=== PATIENT | female | born 1990 | race Caucasian/White ===

== ENCOUNTER 2019-12-15 14:20 | Outpatient (CLI) | payer OTHER ==
--- NOTE | 2019-12-15 17:15 | Ultrasound Report ---
PROCEDURE: OB Detailed Eval INDICATIONS: OUTSIDE/PRIOR DATING DATA: Last menstrual period (LMP): 07/03/2019. LMP-based estimated date of delivery (BARBARA): 04/08/2020. First dating scan (date and location): 11/06/2019. [facility] Estimated date of delivery (BARBARA) from first dating scan: 04/08/2020. TECHNIQUE: Real-time scanning was performed of the fetus, with image documentation and biometric measurements. COMPARISON: Initial dating documents from [facility] FINDINGS: General: A single living intrauterine gestation is present. Presentation: Breech Placenta: Placental position is anterior, without previa. Amniotic fluid index: 11.3 cm, within normal limits for gestational age. heart rate: 155 beats per minute. Maternal cervical canal: 6.0 cm long; normal length is 2.5 cm or more. biometrics: Biparietal diameter: 5.5 cm 22 weeks 5 days Head circumference: 20.5 cm 20 weeks 4 days Abdominal circumference: 7.9 cm 22 weeks 5 days Femur length: 4.0 cm 23 weeks 0 days Estimated gestational age from initial scan: 23 weeks 4 days Composite gestational age from present scan: 23 weeks 5 days Estimated weight and percentile: 5 36 g 13th percentile Measurement variability in biometric dating: +/- 10 days from 12-20 weeks gestation, +/- 2 weeks from 20-30 weeks gestation, +/- 3 weeks at 30 weeks gestation or later. Anatomic survey: Neuro: Ventricles are normal at less than 10 mm. Cisterna magna is normal at 3-11 mm. Cerebellum i s normal in size and morphology. Nuchal skin fold: Not well seen. Face: Nose and lips, facial profile are normal. Spine: No evidence for spina bifida. Heart: 4-chambered heart is present, with normal ventricular outflow tracts. Diaphragm: Diaphragm is intact. Stomach: Left-sided stomach is present. Kidneys: No hydronephrosis. Normal is less than 5 mm in 2nd trimester, less than 7 mm in 3rd trimester. Cord: 3 vessel cord has orthotopic insertion. Bladder: Normal in size. Extremities: All 4 extremities are visualized. IMPRESSION: 1. Single live intrauterine with ultrasound gestational age today 20 weeks 5 days compared to 23 weeks 4 days from initial dating. Ultrasound BABRARA is unchanged at 09/01. 2. Nuchal region is not well visualized. Follow-up ultrasound is recommended. Reviewed by: Gudelia Blum MD on 12/15/2019 5:13 PM PDT Approved by: Gudelia Blum MD on 12/15/2019 5:13 PM PDT Station ID: [id number]
== END 2019-12-15 14:21 | disposition home or self-care (01) ==
LOC: DI 14:20
PROVIDERS: ATTEND Obstetrics & Gynecology
DX: Z36.89 Encounter for other specified antenatal screening (principal)
CPT/HCPCS: 76811

== ENCOUNTER 2019-12-28 21:20 | Outpatient (CLI) | payer OTHER ==
--- NOTE | 2019-12-29 10:44 | Ultrasound Report ---
PROCEDURE: OB F/U or Repeat INDICATIONS: SUPERVISION OF NORMAL OUTSIDE/PRIOR DATING DATA: Last menstrual period (LMP): 07/03/2019. LMP-based estimated date of delivery (BARBARA): 04/08/2020. First dating scan (date and location): 11/06/2019, [facility] Estimated date of delivery (BARBARA) from first dating scan: 04/08/2020. TECHNIQUE: Real-time scanning was performed of the fetus, with image documentation and biometric measurements. Endovaginal scanning: Not performed COMPARISON: 12/15/2019 FINDINGS: General: A single living intrauterine gestation is present. Presentation: Vertex Placenta: Placental position is anterior, without previa. Amniotic fluid index: 13.1 cm, normal for gestational age. heart rate: 149 beats per minute. Nuchal skin thickness is normal. IMPRESSION: 1. Single live intrauterine with a normal nuchal region. Reviewed by: Jennifer Farley MD on 12/29/2019 10:43 AM PDT Approved by: Jennifer Farley MD on 12/29/2019 10:43 AM PDT Station ID: [id number]
== END 2019-12-28 21:21 | disposition home or self-care (01) ==
LOC: DI 21:20
PROVIDERS: ATTEND Obstetrics & Gynecology
DX: Z34.90 Encounter for supervision of normal pregnancy, unspecified, unspecified trimester (principal)
CPT/HCPCS: 76816

== ENCOUNTER 2020-01-18 17:30 | Outpatient (CLI) | payer OTHER ==
[2020-01-18 18:54] LABS: HGB - HEMOGLOBIN 11.9 g/dL (12.0-16.0); MEAN CORPUSCULAR HEMOGLOBIN 28.3 pg (27.0-31.0); MEAN CORPUSCULAR HGB CONC 32.7 g/dL (32.0-36.0); MEAN CORPUSCULAR VOLUME 86.7 fL (81.0-99.0); MEAN PLATELET VOLUME 9.8 fL (7.9-10.8); RED BLOOD COUNT 4.2 10^6/uL (4.20-5.40); RED CELL DISTRIBUTION WIDTH 13.5 % (12.0-15.0); WHITE BLOOD COUNT 14.9 x10^3/uL (4.8-10.8)
== END 2020-01-18 17:31 | disposition home or self-care (01) ==
LOC: LAB 17:30
PROVIDERS: ATTEND Obstetrics & Gynecology
DX: Z36.89 Encounter for other specified antenatal screening (principal)
CPT/HCPCS: 36415; 82950; 85027; 86850

== ENCOUNTER 2020-01-25 08:00 | Outpatient (CLI) | payer OTHER | END 2020-01-25 23:59 | disposition home or self-care (01) | LOC: LAB 08:00 | PROVIDERS: ATTEND Obstetrics & Gynecology | DX: O99.810 Abnormal glucose complicating pregnancy (principal) | CPT/HCPCS: 36415; 82951; 82952 ==

== ENCOUNTER 2020-03-07 08:00 | Outpatient (CLI) | payer OTHER | END 2020-03-07 23:59 | disposition home or self-care (01) | LOC: LAB.R 08:00 | PROVIDERS: ATTEND Obstetrics & Gynecology | DX: Z36.85 Encounter for antenatal screening for Streptococcus B (principal) | CPT/HCPCS: 87797 ==

== ENCOUNTER 2020-04-12 12:10 | Inpatient (IN) | payer OTHER ==
[2020-04-12] MEDS ORDERED: SODIUM CHLORIDE FLUSH 0.9% 10 ML SYRINGE IVP PRN ×2 (14:05→14:14)
[2020-04-12] MEDS ORDERED: MORPHINE 10 MG/ML VIAL IM PRN (14:05)
[2020-04-12] MEDS ORDERED: PROMETHAZINE 25 MG/1 ML VIAL IM ONE (14:05)
[2020-04-12] MEDS ORDERED: LIDOCAINE/PRILOCAINE 2.5% CREAM 5 GM TUBE TOP ONE (14:12)
[2020-04-12] MEDS ORDERED: TRANEXAMIC ACID 1,000 MG in SODIUM CHLORIDE 0.9% 100ML 100 ML IV PRN (14:14)
[2020-04-12] MEDS ORDERED: OXYTOCIN 10 UNIT/ML VIAL IM PRN (14:14)
[2020-04-12] MEDS ORDERED: METOCLOPRAMIDE 10 MG/2 ML VIAL IVP PRN (14:14)
[2020-04-12] MEDS ORDERED: CARBOPROST TROMETHAMINE 250 MCG/ML AMP IM PRN ×2 (14:14)
[2020-04-12] MEDS ORDERED: LIDOCAINE-MPF 1% 30 ML VIAL ID PRN (14:14)
[2020-04-12] MEDS ORDERED: ONDANSETRON ODT 4 MG TABLET TL PRN (14:14)
[2020-04-12] MEDS ORDERED: METOCLOPRAMIDE 10 MG TABLET PO PRN (14:14)
[2020-04-12] MEDS ORDERED: ACETAMINOPHEN 325 MG TABLET PO PRN (14:14)
[2020-04-12] MEDS ORDERED: miSOPROStoL 200 MCG TABLET BC PRN (14:14)
[2020-04-12] MEDS ORDERED: miSOPROStoL 200 MCG TABLET PR PRN (14:14)
[2020-04-12] MEDS ORDERED: METHYLERGONOVINE 0.2 MG/ML VIAL IM PRN (14:14)
[2020-04-12] MEDS ORDERED: OXYTOCIN/SODIUM CHLORIDE 500 ML IV PRN ×2 (14:14)
[2020-04-12] MEDS ORDERED: miSOPROStoL 200 MCG TABLET BC ONE (14:14)
[2020-04-12] MEDS ORDERED: ONDANSETRON 4 MG/2 ML VIAL IVP PRN (14:14)
[2020-04-12] MEDS ORDERED: OXYTOCIN/SODIUM CHLORIDE 500 ML IV SCH (15:00)
[2020-04-12 16:35] LABS: BASOPHILS # (AUTO) 0.1 10^3/uL (0.0-0.1); BASOPHILS % (AUTO) 0.3 %; HGB - HEMOGLOBIN 11.3 g/dL (12.0-16.0); LYMPHOCYTES % (AUTO) 5.9 %; MEAN CORPUSCULAR HEMOGLOBIN 26.3 pg (27.0-31.0); MEAN CORPUSCULAR HGB CONC 31.2 g/dL (32.0-36.0); MEAN CORPUSCULAR VOLUME 84.4 fL (81.0-99.0); MEAN PLATELET VOLUME 11.1 fL (7.9-10.8); MONOCYTES # (AUTO) 0.5 10^3/uL (0.0-1.0); NEUTROPHILS # (AUTO) 15.4 10^3/uL (1.5-6.6); NEUTROPHILS % (AUTO) 88.6 %; PLT - PLATELET COUNT 220 10^3/uL (130-450); RED BLOOD COUNT 4.29 10^6/uL (4.20-5.40); RED CELL DISTRIBUTION WIDTH 14.9 % (12.0-15.0); WHITE BLOOD COUNT 17.4 x10^3/uL (4.8-10.8)
[2020-04-12] MEDS ORDERED: SODIUM CHLORIDE FLUSH 0.9% 10 ML SYRINGE IVP SCH (17:00)
[2020-04-12] MEDS ORDERED: miSOPROStoL 100 MCG TABLET BC SCH (18:00)
[2020-04-12] MEDS ORDERED: fentaNYL 100 MCG/2 ML VIAL IVP PRN (20:14)
[2020-04-12] MEDS: LACTATED RINGERS 1,000 ML IV SCH (20:14)
[2020-04-12] MEDS: miSOPROStoL 100 MCG TABLET BC SCH (22:41)
--- NOTE | 2020-04-13 00:16 | HISTORY & PHYSICAL EXAMINATION ---
Admit History - Visit Reason Visit Reason: Other (IOL) - : 1 Parity: 0 Care: positive: [facility] Smoking Status: Never smoker - Mother's Labs Mother's Blood Type: positive: A Mother's RH: positive: Negative GBS: positive: Group B Step Negative Rubella Status: positive: Immune - Other Maternal History Other Maternal History: Patient is a 29 yo at 40+4 wga here for IOL. Patient was seen in clinic today and counseled regarding need for IOL for post dates. She signed consent forms in clinic one week ago. She was checked in clinic and was 2/70/high/posterior/med. She is hesitant to undergo induction but agreed to come in for outpatient Benoit balloon placement. Benoit balloon was inserted with a speculum with 60 cc in the uterine balloon and 40 cc int he vaginal balloon. Placement of the balloon was poorly tolerated and she desired to remain inpatient for pain management. Benoit balloon fell out and patient opted tocontinue cervical ripening with misoprostol with plan to continue the induction once cervical ripening is complete. Patient is Rh neg and received Rhogam. Failed 1H OGTT but passed the 3H GTT. PNC HX as below: Reviewed R/B/A and process for induction of labor at 39 week visit Induction is no longer elective as of 05/15/2019 as she is postdates DATING: LMP 11/28/2018 gives BARBARA of 04/08/2020. US 15w3d confirms LMP dating. Please see ultrasound scanned sheets from [facility]. A neg/Rub imm Declined genetic testing and carrier screening. FAS EFW 13%ile. 3VC, anterior placenta Rhogam given 01/19/2020 Tdap completed Flu- declined Glucola 181, normal 3H GTT HSV: Denies. GBS neg MOD: Anticipate . Will need Pap in period Breast Rx given Meds/Allgy - Allergies Allergies/Adverse Reactions: Allergies Allergy/AdvReac Type Severity Reaction Status Date / Time No Known Drug Allergies Allergy Verified 04/12/20 20:21 Review of Systems - Other Findings Other Findings: As per HPI, otherwise remaining systems are negative. Physical - Abdominal Exam Vital Signs: Temp Pulse Resp BP Pulse Ox 97.5 F L 96 17 117/73 100 04/12/20 17:00 04/12/20 17:00 04/12/20 17:00 04/12/20 17:00 04/12/20 17:00 Contraction Frequency (min/apart): Irregular Contraction Intensity: positive: Mild to moderate Uterine Resting Tone: positive: Soft - Monitoring Heart Rate Baseline: 140 mod brandon 15x15 accels no decels Strip Review: positive: Category I - Presentation Presentation: positive: Vertex - Vaginal Exam Membranes: positive: Membranes intact Dilation (in cm): 2 Effacement (%): 70 Station: positive: -3 Cervical Position: positive: Posterior - Speculum Exam Speculum Exam Performed: positive: Yes - Other Notes Labor Progress Note/Additional Text: GEN: NAD HEAD: NCAT EYES: No scleral icterus or conjunctival injection NECK: No cervical LAD or TM CV: RRR RESP: CTAB, normal effort ABD: S&NT/ND PSYCH: appropriate affect NEURO: alert and oriented, normal gait and coordination EXT: WWP confirmed vertex by bedside us Benoit balloon placed at admit 60 cc in uterine balloon and 40 cc in vaginal balloon Plan for Labor - Plan For Labor Plan for Labor: 29 yo at 40+4 wga here for IOL IOL: Unfavorable cervix -Benoit balloon placed with plan for outpatient management Poorly tolerated and patient opted to stay in house -Benoit baloon fell out and patient was amenable to misoprstol for additional ripening -Will start pitocin when favorable -AROM as indicated FWB: Vertex, Cat I, well grown, GBS neg -Cont EFM when on miso/pitocin PAIN: Patient had been planning unmedicated but is re-evaluating -Nitrous oxide as desired -Epidural as desired Inpatient care
--- NOTE | 2020-04-13 01:27 | PROVIDER PROGRESS NOTE ---
Subjective - Prog Note Date Prog Note Date: 04/13/20 Prog Note Time: 01:25 - Subjective Subjective: Benoit balloon fell out Patient was given miso 25 mcg x1 and then 50 mcg BC x1 Sleeping comfortably EFM 140 mod brandon 15x15 accels no decels TOCO: Q2-4 min, mild Cont with miso for cervical ripening Start pitocin when favorable or ruptured Objective - Lab Results Fish Bones: 04/12/20 16:17 Other Labs: Lab Results x24hrs 04/12/20 04/12/20 Range/Units 16:17 16:17 WBC 17.4 H (4.8-10.8) x10^3/uL RBC 4.29 (4.20-5.40) 10^6/uL Hgb 11.3 L (12.0-16.0) g/dL Hct 36.2 L (37.0-47.0) % MCV 84.4 (81.0-99.0) fL MCH 26.3 L (27.0-31.0) pg MCHC 31.2 L (32.0-36.0) g/dL RDW 14.9 (12.0-15.0) % Plt Count 220 (130-450) 10^3/uL MPV 11.1 H (7.9-10.8) fL Neut # (Auto) 15.4 H (1.5-6.6) 10^3/uL Lymph # (Auto) 1.0 L (1.5-3.5) 10^3/uL [place] # (Auto) 0.5 (0.0-1.0) 10^3/uL Eos # (Auto) 0.0 (0.0-0.7) 10^3/uL Baso # (Auto) 0.1 (0.0-0.1) 10^3/uL Absolute Nucleated RBC 0.00 x10^3/uL Nucleated RBC % 0.0 /100WBC Blood Type A NEGATIVE Antibody Screen NEGATIVE
[2020-04-13] MEDS: miSOPROStoL 100 MCG TABLET BC SCH (03:31)
[2020-04-13] MEDS: LACTATED RINGERS 1,000 ML IV SCH ×3 (05:32→23:08)
--- NOTE | 2020-04-13 15:07 | PROVIDER PROGRESS NOTE ---
Subjective - Prog Note Date Prog Note Date: 04/13/20 Prog Note Time: 13:15 - Subjective Subjective: Late entry Patient is up and ambulating. Mild to moderate discomfort. Pitocin at 6 mu/min Patient wants to avoid epidural if possible. Membranes intact. Objective - Vital Signs/Intake & Output Reviewed Vital Signs: Yes Intake & Output: Intake & Output 04/10/20 04/11/20 04/12/20 04/13/20 23:59 23:59 23:59 23:59 Intake Total 1866.667 Output Total 1200 Balance 666.667 - Objective General Appearance: positive: Mild distress Respiratory: positive: No respiratory distress Cardiovascular: positive: Other (RR) Abdomen: positive: Non-tender Skin: positive: Color nml Extremities: positive: Non-tender Neurologic/Psychiatric: positive: Oriented x3 Comments/Other: LJE 5-6//-2 - Lab Results Fish Bones: 04/12/20 16:17 Other Labs: Lab Results x24hrs 04/12/20 04/12/20 04/12/20 Range/Units 16:17 16:17 15:45 WBC 17.4 H (4.8-10.8) x10^3/uL RBC 4.29 (4.20-5.40) 10^6/uL Hgb 11.3 L (12.0-16.0) g/dL Hct 36.2 L (37.0-47.0) % MCV 84.4 (81.0-99.0) fL MCH 26.3 L (27.0-31.0) pg MCHC 31.2 L (32.0-36.0) g/dL RDW 14.9 (12.0-15.0) % Plt Count 220 (130-450) 10^3/uL MPV 11.1 H (7.9-10.8) fL Neut # (Auto) 15.4 H (1.5-6.6) 10^3/uL Lymph # (Auto) 1.0 L (1.5-3.5) 10^3/uL [place] # (Auto) 0.5 (0.0-1.0) 10^3/uL Eos # (Auto) 0.0 (0.0-0.7) 10^3/uL Baso # (Auto) 0.1 (0.0-0.1) 10^3/uL Absolute Nucleated RBC 0.00 x10^3/uL Nucleated RBC % 0.0 /100WBC Coronavirus (PCR) NEGATIVE Blood Type A NEGATIVE Antibody Screen NEGATIVE Assessment/Plan - Problem List (1) Encounter for induction of labor Impression: Continue with pitocin for induction of labor Progressing well along labor course Cat I tracing CTX Q3-4 min and mild Anticipate
--- NOTE | 2020-04-13 20:01 | PROVIDER PROGRESS NOTE ---
Subjective - Prog Note Date Prog Note Date: 04/13/20 Prog Note Time: 19:15 - Subjective Subjective: Patient struggling with emotions and discomfort. Pitocin 5 mU/min. Unable to tolerate cervical exam. Tearful EFM 135 moderate brandon 15x15 accels no decels TOCO: Q2-3 min Cat I tracing Had a discussion regarding the need to gain some control over her response to discomfort both to advance labor and to keep the delivery a safe process Patient is discussing means of managing discomforts with her mother We had a lengthy discussion regarding safety issues in labor with regard to appropriate responses to discomfort, emotional and physical Objective - Vital Signs/Intake & Output Intake & Output: Intake & Output 04/10/20 04/11/20 04/12/20 04/13/20 23:59 23:59 23:59 23:59 Intake Total 1866.667 Output Total 1200 Balance 666.667 - Lab Results Fish Bones: 04/12/20 16:17 Other Labs: Lab Results x24hrs 04/12/20 Range/Units 15:45 Coronavirus (PCR) NEGATIVE
[2020-04-13] MEDS ORDERED: ROPIVACAINE 0.2% 200 MG/100 ML BAG EP ONE (20:32)
[2020-04-13] MEDS ORDERED: ePHEDrine 50 MG/ML VIAL IVP ONE (21:07)
[2020-04-13] MEDS ORDERED: diphenhydrAMINE INJ 50 MG/ML VIAL IVP PRN (21:39)
[2020-04-13] MEDS ORDERED: ePHEDrine 50 MG/ML VIAL IVP PRN (21:39)
[2020-04-13] MEDS ORDERED: NALBUPHINE 10 MG/ML AMP IVP PRN (21:39)
[2020-04-13] MEDS ORDERED: ROPIVACAINE 0.2% 200 MG/100 ML BAG EP PRN (21:39)
[2020-04-13] MEDS ORDERED: METOCLOPRAMIDE 10 MG/2 ML VIAL IVP PRN (21:39)
[2020-04-13] MEDS ORDERED: NALOXONE 0.4 MG/ML VIAL IVP PRN (21:39)
[2020-04-13] MEDS ORDERED: ONDANSETRON 4 MG/2 ML VIAL IVP PRN (21:39)
--- NOTE | 2020-04-13 21:39 | ANESTHESIA ---
Pre-Anesthesia VS, & Labs - Diagnosis active labor - Procedure labor epidural Vital Signs: Temp Pulse Resp BP Pulse Ox 36.4 C L 96 17 117/73 100 04/12/20 17:00 04/12/20 17:00 04/12/20 17:00 04/12/20 17:00 04/12/20 17:00 Height: 5 ft 6 in Weight (kg): 95.708 kg Body Mass Index: 34.0 BMI Classification: Obese - NPO >8 hours - Is Patient ?: Yes - Lab Results Current Lab Results: Laboratory Tests 04/12/20 16:17: Blood Type A NEGATIVE, Antibody Screen NEGATIVE 04/12/20 16:17: WBC 17.4 H, RBC 4.29, Hgb 11.3 L, Hct 36.2 L, MCV 84.4, MCH 26.3 L, MCHC 31.2 L, RDW 14.9, Plt Count 220, MPV 11.1 H, Neut # (Auto) 15.4 H, Lymph # (Auto) 1.0 L, [place] # (Auto) 0.5, Eos # (Auto) 0.0, Baso # (Auto) 0.1, Absolute Nucleated RBC 0.00, Nucleated RBC % 0.0 Fish Bones: 04/12/20 16:17 Home Medications and Allergies Active Medications Acetaminophen (Acetaminophen 325 Mg Tablet) 650 mg PO Q6H PRN PRN Reason: Pain or Fever Carboprost Tromethamine (Carboprost Tromethamine 250 Mcg/Ml Amp) 250 mcg IM Q15M PRN PRN Reason: Step 4: Hemorrhage protocol Stop: 04/17/20 14:15 Fentanyl (Fentanyl 100 Mcg/2 Ml Vial) 50 mcg IVP Q1H PRN PRN Reason: PAIN Lactated Ringer's (Lr) 1,000 mls @ 100 mls/hr IV .Q10H JOSE RAUL Last Admin: 04/13/20 14:54 Dose: 100 mls/hr Documented by: Oxytocin/Sodium Chloride (Pitocin/Sodium Chloride) 500 mls @ 999 mls/hr IV PRN PRN; Protocol PRN Reason: POST- HEMORR PREVENTION Stop: 04/17/20 14:15 Tranexamic Acid 1,000 mg/ (Sodium Chloride) 110 mls @ 660 mls/hr IV .ONCE PRN PRN Reason: EBL >1200mL and within 3hr Stop: 04/17/20 14:15 Oxytocin/Sodium Chloride (Pitocin/Sodium Chloride) 500 mls @ 999 mls/hr IV PRN PRN; Protocol PRN Reason: POST- HEMORR PREVENTION Oxytocin/Sodium Chloride (Pitocin/Sodium Chloride) 500 mls @ 1 mls/hr IV TITR JOSE RAUL; Protocol Last Admin: 04/13/20 08:35 Dose: 1 milliunit/min, 1 mls/hr Documented by: Lidocaine HCl (Lidocaine-Mpf 1% 30 Ml Vial) 30 ml ID .ONCE PRN PRN Reason: PERINEAL REPAIR Stop: 04/17/20 14:15 Methylergonovine Maleate (Methylergonovine 0.2 Mg/Ml Vial) 0.2 mg IM .ONCE PRN PRN Reason: Step 2: Hemorrhage protocol Stop: 04/17/20 14:15 Metoclopramide HCl (Metoclopramide 10 Mg Tablet) 10 mg PO Q6H PRN PRN Reason: Nausea / Vomiting Metoclopramide HCl (Metoclopramide 10 Mg/2 Ml Vial) 10 mg IVP Q6H PRN PRN Reason: Nausea / Vomiting Misoprostol (Misoprostol 200 Mcg Tablet) 800 mcg BC .ONCE PRN PRN Reason: Step 3: Hemorrhage protocol Stop: 04/17/20 14:15 Misoprostol (Misoprostol 100 Mcg Tablet) 50 mcg BC Q4HR [facility] Last Admin: 04/13/20 03:31 Dose: 50 mcg Documented by: Ondansetron HCl (Ondansetron 4 Mg/2 Ml Vial) 4 mg IVP Q4HR PRN PRN Reason: Nausea / Vomiting Ondansetron HCl (Ondansetron Odt 4 Mg Tablet) 4 mg TL Q4HR PRN PRN Reason: Nausea / Vomiting Oxytocin (Oxytocin 10 Unit/Ml Vial) 10 unit IM .ONCE PRN PRN Reason: Step one: If no IV access Stop: 04/17/20 14:15 Sodium Chloride (Sodium Chloride Flush 0.9% 10 Ml Syringe) 10 ml IVP PRN PRN PRN Reason: NEEDED PER PROVIDER ORDERS Sodium Chloride (Sodium Chloride Flush 0.9% 10 Ml Syringe) 10 ml IVP 0100,0900,1700 [facility] Sodium Chloride (Sodium Chloride Flush 0.9% 10 Ml Syringe) 10 ml IVP PRN PRN PRN Reason: NEEDED PER PROVIDER ORDERS Allergies/Adverse Reactions: Allergies Allergy/AdvReac Type Severity Reaction Status Date / Time No Known Drug Allergies Allergy Verified 04/12/20 20:21 Anes History & Medical History - Anesthetic History Anesthesia Complications: reports: No previous complications - Medical History Cardiovascular: reports: None Pulmonary: reports: None Gastrointestinal: reports: None Smoking Status: Never smoker History of Cancer?: No - Obstetrical History : 1 Parity: 0 Exam General: Alert Dental: WNL Cardiovascular: Regular rate Plan Anesthesia Type: Epidural Consent for Procedure(s) Verified and Reviewed: Yes Code Status: Attempt Resuscitation ASA classification: 2-Mild systemic disease Is this case an emergency?: No
--- NOTE | 2020-04-13 22:01 | PROVIDER PROGRESS NOTE ---
Subjective - Prog Note Date Prog Note Date: 04/13/20 Prog Note Time: 22:00 - Subjective Subjective: Comfortable with epidural in place SVE /-2 with bag beginning to bulge Suspect OP presentation Cat I tracing Pitocin at 8mU/min Cont with IOL and anticipate Objective - Vital Signs/Intake & Output Intake & Output: Intake & Output 04/10/20 04/11/20 04/12/20 04/13/20 23:59 23:59 23:59 23:59 Intake Total 1866.667 Output Total 1200 Balance 666.667 - Lab Results Fish Bones: 04/12/20 16:17 Other Labs: Lab Results x24hrs 04/12/20 Range/Units 15:45 Coronavirus (PCR) NEGATIVE
--- NOTE | 2020-04-14 00:39 | PROVIDER PROGRESS NOTE ---
Subjective - Prog Note Date Prog Note Date: 04/14/20 Prog Note Time: 00:37 - Subjective Subjective: Patient was sleeping. Comfortable with epidural in place. Pitocin at 12 mu?min EFM 145 mod brandon 15x15 accels no decels TOCO: Q2-3 min SVE 6-7/70/-2/aut bag AROM with passage of clear fluid Cont with induction. Anticipate Objective - Vital Signs/Intake & Output Intake & Output: Intake & Output 04/11/20 04/12/20 04/13/20 04/14/20 23:59 23:59 23:59 23:59 Intake Total 2690.000 Output Total 1200 Balance 1490.000 - Lab Results Fish Bones: 04/12/20 16:17 Other Labs: Lab Results x24hrs 04/12/20 Range/Units 15:45 Coronavirus (PCR) NEGATIVE
[2020-04-14] MEDS ORDERED: ROPIVACAINE 0.2% 200 MG/100 ML BAG EP PRN (02:03)
--- NOTE | 2020-04-14 02:07 | CONSULTATION NOTE ---
Consultation Report: I was called as patient complaining of pain, BP 104/46, motor to legs with some heavyness. Fentanyl 100 mcg given in epidural and settings adjusted per orders. I told patient that this pretty much maxes out her epidural which is limited by her blood pressure, that no, I would not just put her to sleep as that would not be in the best interest of her baby.
[2020-04-14] MEDS ORDERED: DOCUSATE SODIUM 100 MG CAPSULE PO PRN (04:44)
[2020-04-14] MEDS ORDERED: SIMETHICONE CHEW 80 MG TABLET PO PRN (04:44)
[2020-04-14] MEDS ORDERED: HYDROCORTISONE 1% CREAM 28 GM TUBE PR PRN (04:44)
--- NOTE | 2020-04-14 04:49 | DELIVERY NOTE ---
Delivery Note - Labor Labor: positive: Induced by oxytocin - Infant Delivery Method Delivery Method: positive: Spontaneous vaginal delivery - Cervical Ripening Method Cervical Ripening Method: positive: Balloon device, Misoprostil - Presentation Presentation: positive: Vertex, THOMAS - left occiput anterior - Nuchal Cord Nuchal Cord: positive: None - Anesthetic Anesthetic Type: - Amniotic Fluid Description Amniotic Fluid Description: positive: Clear - Episiotomy Type Episiotomy Type: positive: None - Laceration Laceration: positive: 2nd degree - Suture Suture Type: positive: Vicryl Suture Size: positive: 3-0 - Delivery Outcome Delivery Outcome: positive: Livebirth - : positive: Stimulated, Warmed, [place] used sex: positive: Male - Cord Cord: positive: 3 vessels - Placenta Placenta: positive: Intact, Expressed - Estimated Blood Loss Estimated Blood Loss (in cc): 150 - Post Delivery Events Post Delivery Events: positive: No post delivery events - Delivery Comments (Free Text/Narrative) Delivery Comments (Free Text/Narrative): STAGE I: Patient is a 29 yo admitted on 04/12/2020 at 40+4 wga for postdates. IOL. Initial SVE was 2/70/high/posterior/med. Benoit balloon was inserted with a speculum with 60 cc in the uterine balloon and 40 cc in the vaginal balloon. Benoit balloon fell out spontaneously and patient underwent additional cervical ripening with misoprostol. She was then started on pitocin, reaching a max dose of 12 mU/min. Underwent artificial rupture of membranes notable for passage of clear fluid. Epidural for pain management. GBS negative, no antibiotics were indicated. Complete at 3:50 am on 05/15/2019. Cat I tracing throughout stage I labor. STAGE II: Patient pushed well for 14 minutes to deliver a viable male infant from vertex presentation. delivered form THOMAS presentation with right shoulder anterior. Shoulder delivered without difficulty. was delivered to mother's chest. Cord was clamped x2 and cut after pulsations had ceased. Weight and Apgars are pending. STAGE III: Placenta delivered with manual expression. It was examined and found to be intact with infiltration of calcified deposits. Examination of the perineum showed a small 2nd degree midline laceration. It was repaired in the usual sterile fashion in layers using 3-0 Vicryl. Good hemostasis was noted. Total EBL was 150 cc. Procedure was well tolerated and without complication.
[2020-04-14] MEDS ORDERED: LACTATED RINGERS 1,000 ML IV SCH (05:00)
[2020-04-14] MEDS: ACETAMINOPHEN 500 MG TABLET PO SCH (05:57)
[2020-04-14] MEDS: IBUPROFEN 600 MG TABLET PO SCH ×3 (05:58→18:08)
[2020-04-14] MEDS ORDERED: RHO(D) IMMUNE GLOBULIN 300 MCG SYRINGE IM ONE (19:01)
[2020-04-15] MEDS: IBUPROFEN 600 MG TABLET PO SCH ×4 (00:20→16:42)
[2020-04-15] MEDS: ACETAMINOPHEN 500 MG TABLET PO SCH ×2 (01:46→11:08)
--- NOTE | 2020-04-15 10:30 | PROVIDER PROGRESS NOTE ---
Subjective - Prog Note Date Prog Note Date: 04/15/20 Prog Note Time: 10:27 - Subjective Subjective: Patient is up and ambulating, tolerating po, and voiding. Pain is well managed with pain medications. BF is going wel. Patient desires DC to home. Rogam workup not yet complete. Patient has not been able to document urination. Objective - Vital Signs/Intake & Output Vital Signs: Vital Signs x48h Temp Pulse Resp BP Pulse Ox 04/15/20 09:00 97.9 F 78 17 100/55 L 98 Intake & Output: Intake & Output 04/12/20 04/13/20 04/14/20 04/15/20 23:59 23:59 23:59 23:59 Intake Total 2690.000 300 Output Total 1200 1600 Balance 1490.000 -1300 - Objective General Appearance: positive: No acute distress Respiratory: positive: No respiratory distress Cardiovascular: positive: Other (RR) Abdomen: positive: Non-tender, Other (S&NT/ND. FF below umbi) Skin: positive: Color nml Extremities: positive: Non-tender, No pedal edema, Pedal edema (mild BLE edema.NT) Neurologic/Psychiatric: positive: Oriented x3 - Lab Results Fish Bones: 04/12/20 16:17 Other Labs: Lab Results x24hrs 04/15/20 Range/Units 08:30 Blood Type A NEGATIVE Maternal Bleed NEGATIVE (NEGATIVE) Assessment/Plan - Problem List (1) Encounter for induction of labor Impression: PPD#1 s/p on 04/14/2020 at 4:04 Meeting goals for discharge Needs to complete Rhogam workup and administration Infant not yet cleared for DC DC to home when cleared for DC Routine DC instructions given
--- NOTE | 2020-04-15 10:35 | Discharge Plan ---
Discharge Plan Problem Reviewed?: Yes Disposition: Home, Self Care Condition: Good Prescriptions: Docusate Sodium 100Mg Capsule [Colace 100Mg Capsule] 100 - 200 mg PO BID PRN #60 capsule PRN Reason: Constipation Ibuprofen [Motrin] 600 mg PO Q6H PRN #90 tab PRN Reason: Pain Acetaminophen [Tylenol] 650 mg PO Q6H PRN #90 tablet PRN Reason: PRN PAIN &/OR FEVER Diet: Regular Activity Restrictions: Additional Comments (Nothing in the vagina for 6 weeks: No intercourse, tampons, douching Call for: -Fever greater than 100.5 - Pain that does not improve with pain medication -Heavy bleeding in which you are soaking a pad an hour for 2 hours in a row) Shower Restrictions: Yes (OK to shower. No tub baths or hot tubs for 4 weeks) Driving Restrictions: No Assessment: Ibuprofen 600 mg by mouth every 6 hours as needed for pain Acetaminophen 500-1000 mg by mouth every 8 hours as needed for pain Docusate 100-200 mg by mouth twice a day as needed for constipation No Smoking: If you smoke, Please STOP! Call for help. Follow-up with: Francesca Crook MD [Provider Admit Priv/Credential] -
--- NOTE | 2020-04-15 10:36 | DISCHARGE SUMMARY ---
Discharge Summary Admit Date: 04/13/20 Discharge Date: 04/15/20 Condition at Discharge: Good Discharge Disposition: 01 Home, Self Care - DIAGNOSES Admission Diagnoses: IUP at 40+4 wga Induction of labor for postdates Discharge Diagnoses with Status of Each Condition: same and delivery of term gestation - HPI History of Present Illness: Patient is a 29 yo admitted at 40+4 wga for IOL. Patient was seen in clinic on 04/03/2020 and counseled regarding need for IOL for post dates. She signed consent forms in clinic one week prior. She was checked in clinic and was 2/70/high/posterior/med. She was hesitant to undergo induction but agreed to come in for outpatient Benoit balloon placement. Benoit balloon was inserted with a speculum with 60 cc in the uterine balloon and 40 cc in the vaginal balloon. Placement of the balloon was poorly tolerated and she desired to remain inpatient for pain management. Benoit balloon fell out and patient opted tocon tinue cervical ripening with misoprostol with plan to continue the induction once cervical ripening is complete. Patient is Rh neg and received Rhogam at 28 weeks. Failed 1H OGTT but passed the 3H GTT. PNC HX as below: Reviewed R/B/A and process for induction of labor at 39 week visit Induction is no longer elective as of 05/15/2019 as she is postdates DATING: LMP 11/28/2018 gives BARBARA of 04/08/2020. US 15w3d confirms LMP dating. Please see ultrasound scanned sheets from [facility]. A neg/Rub imm Declined genetic testing and carrier screening. FAS EFW 13%ile. 3VC, anterior placenta Rhogam given 01/19/2020 Tdap completed Flu- declined Glucola 181, normal 3H GTT HSV: Denies. GBS neg MOD: Anticipate . Will need Pap in perio - HOSPITAL COURSE Hospital Course: STAGE I: Patient is a 29 yo admitted on 04/12/2020 at 40+4 wga for postdates. IOL. Initial SVE was 2/70/high/posterior/med. Benoit balloon was inserted with a speculum with 60 cc in the uterine balloon and 40 cc in the vaginal balloon. Benoit balloon fell out spontaneously and patient underwent additional cervical ripening with misoprostol. She was then started on pitocin, reaching a max dose of 12 mU/min. Underwent artificial rupture of membranes notable for passage of clear fluid. Epidural for pain management. GBS negative, no antibiotics were indicated. Complete at 3:50 am on 05/15/2019. Cat I tracing throughout stage I labor. STAGE II: Patient pushed well for 14 minutes to deliver a viable male infant from vertex presentation. Infant delivered form THOMAS presentation with right shoulder anterior. Shoulder delivered without difficulty. was delivered to mother's chest. Cord was clamped x2 and cut after pulsations had ceased. Weig ht and Apgars are pending. STAGE III: Placenta delivered with manual expression. It was examined and found to be intact with infiltration of calcified deposits. Examination of the perineum showed a small 2nd degree midline laceration. It was repaired in the usual sterile fashion in layers using 3-0 Vicryl. Good hemostasis was noted. Total EBL was 150 cc. Procedure was well tolerated and without complication. course was uncomplicated. Patient meeting goals for discharge on PPD#1. Rhogam evaluation in process at time of this writing. Will be given Rhogam prior to finalization of discharge as indicated. ETA: RHOGAM GIVEN PRIOR TO DC - ALLERGIES Allergies/Adverse Reactions: Allergies Allergy/AdvReac Type Severity Reaction Status Date / Time No Known Drug Allergies Allergy Verified 04/12/20 20:21 - MEDICATIONS Home Medications: Ambulatory Orders Medication Instructions Recorded Confirmed Acetaminophen [Tylenol] 650 mg PO Q6H PRN #90 tablet 04/15/20 Docusate Sodium 100Mg Capsule 100 - 200 mg PO BID PRN #60 capsule 04/15/20 [Colace 100Mg Capsule] Ibuprofen [Motrin] 600 mg PO Q6H PRN #90 tab 04/15/20 - LABS Result Diagrams: 04/12/20 16:17 - FOLLOW UP Follow Up: 1 week - TIME SPENT Time Spent in Discharge (Minutes): 30
[2020-04-15] MEDS ORDERED: RHO(D) IMMUNE GLOBULIN 300 MCG SYRINGE IM SCH (16:00)
[2020-04-15 16:54] VITALS: BP 111/74
--- NOTE | 2020-04-15 19:17 | Labor Flowsheet ---
Labor Flowsheet Datetime Report Generated by CPN: 04/15/2020 19:17 Datetime: 04/15/2020 16:42 VITAL SIGNS NBP Sys/Evie/Mean (mmHg): 111 : 74 : 82 Pulse: 90 Datetime: 04/15/2020 12:35 SpO2 (%): 98 Datetime: 04/14/2020 06:01 Stage of : Recovery Respirations: 18 PAIN Pain Scale: 3 Pain Presence: Intermittent Pain Type: Dull Datetime: 04/14/2020 05:46 Pain Location: Perineum Datetime: 04/14/2020 05:16 Temperature (C): 37.1 Temperature Route: Oral Datetime: 04/14/2020 04:46 Membranes Ruptured Date/Time: 04/14/2020 02:09 Datetime: 04/14/2020 04:15 LaborFlag: Labor Datetime: 04/14/2020 04:00 UTERINE ACTIVITY Monitor Mode: External Frequency (min): 2-3 Quality: Strong Duration (sec): 40-60 Resting Tone (Palpate): Relaxed FHR Baseline Rate : 135 Variability: Moderate 6-25 bpm Decelerations: Early Datetime: 04/14/2020 03:50 VAGINAL EXAM Dilatation (cm): 10.0 Datetime: 04/14/2020 03:30 Exam by: Hmahala Vaginal Exam Comments: Ant cervix Datetime: 04/14/2020 03:29 Monitor Interventions for UA: [place] Adjusted Datetime: 04/14/2020 03:15 Pattern: Normal: <= 5 Contractions in 10 Minutes Datetime: 04/14/2020 03:00 Pain Coping: Breathing Through Contractions Anesthesia Level Check: T10- Umbilicus Datetime: 04/14/2020 02:45 Accelerations: 15X15 Datetime: 04/14/2020 02:18 Analgesics/Sedatives: Fentanyl (mcg) @ (Annotations: given trhough epidural cath by anesthesia) Datetime: 04/14/2020 02:15 ASSESSMENT A Monitor Mode: Telemetry Datetime: 04/14/2020 01:44 Anesthesia Comments: anesthesia here to dose epidural Datetime: 04/14/2020 00:52 Patient Position/Activity: Right Lateral Patient Care Comments: with peanut ball Datetime: 04/14/2020 00:29 Membrane Status: Ruptured Membranes Rupture Method: Artificial Amniotic Fluid Color: Clear Amniotic Fluid Amount: Small Datetime: 04/14/2020 00:15 MEDICATIONS Pitocin (milliunits): Increased to @ 12 Datetime: 04/13/2020 23:45 Monitor Interventions for FHR: Ultrasound Adjusted Datetime: 04/13/2020 23:31 Pain Relief Measures: Epidural Given Datetime: 04/13/2020 23:07 PATIENT CARE IV/Blood Work: New IV Bag Hung Datetime: 04/13/2020 21:50 Cervix, Consistency: Soft Cervix, Position: Midposition Datetime: 04/13/2020 21:46 I/O Interventions: Benoit Cath Inserted Datetime: 04/13/2020 21:44 FHR Baseline Changes: No Baseline Change Actions for Decelerations: Sterile Vaginal Exam Oxygen Method: Room Air Datetime: 04/13/2020 20:41 Epidural Procedure: Test Dose Datetime: 04/13/2020 20:23 PROCEDURE TIME OUT Procedure Verify: Correct Patient Identity; Correct Side and Site are Marked; Accurate Procedure Co nsent Form; Agreement on Procedure to be Done; Correct Patient Position ANESTHESIA Anesthesia Plans: Epidural Epidural Positioning: Sitting Datetime: 04/13/2020 20:15 Category: Category I Datetime: 04/13/2020 20:07 Anesthesia Interview: E Datetime: 04/13/2020 19:56 Communication Comments: anesthesia called for epidural Datetime: 04/13/2020 19:31 Medication Comments: pt did not want me to increase the pit Datetime: 04/13/2020 19:05 COMMUNICATION Communication: Provider at Bedside Datetime: 04/13/2020 15:20 Provider Reviewed Strip: Yes Datetime: 04/13/2020 15:11 Effacement (%): 100 Station: -1 Datetime: 04/13/2020 12:15 Contraction Comments: toco adjusted. palpated q2-4 min Datetime: 04/13/2020 12:02 Notification Reason: Status Update; Pain Datetime: 04/13/2020 08:30 Pitocin Checklist: At Least 1 Acceleration of 15 bpm x 15 Seconds in 30 Minutes or Adequate Variabi lity Datetime: 04/13/2020 07:00 Resting Tone IUP (mmHg): Datetime: 04/13/2020 06:29 Pain Assessment Comments: using birthing ball @ bedside Datetime: 04/13/2020 06:17 Provider Notified (Name): McSorely Datetime: 04/13/2020 06:11 Vaginal Bleeding: Normal Show Datetime: 04/13/2020 06:00 Comments: periods of minimal variability Datetime: 04/13/2020 05:48 TEACHING Instructional Method: Verbal Plan of Care: Plan of Care Discussed Teaching Comments: pt okay to have SVE around 0630 Datetime: 04/13/2020 05:45 Comfort Measures: Breathing/Relaxation Datetime: 04/13/2020 03:31 Cervical Ripening Agents: Benoit Balloon; Cytotec @ Datetime: 04/13/2020 03:28 MATERNAL ASSESSMENT Level of Consciousness: Alert DTR's/Clonus: DTRs 2+; No Clonus Headache: Denies Breath Sounds, Left: Clear and Equal Breath Sounds, Right: Clear and Equal Nausea/Vomiting: Denies RUQ Epigastric Pain: Denies Datetime: 04/12/2020 23:00 Vibroacoustic Stim: Datetime: 04/12/2020 19:53 Unit Routine: [place] to Room; Call [place]; Monitoring; Medications Labor/Induction: Labor Stages; Cervical Ripening Pain Management: IV Narcotics; Epidural; Pain Scale/Goals; Comfort Measures Medications: Cervical Ripening
== END 2020-04-15 19:15 | disposition home or self-care (01) | DRG 807 ==
LOC: WFO 12:10 → FBP 12:15 → WFO 14:08 → FBP 14:08 → OBSVTOIN 04-13 12:08
PROVIDERS: ADMIT Obstetrics & Gynecology; ATTEND Obstetrics & Gynecology
PROC: 3E033VJ Introduction of Other Hormone into Peripheral Vein, Percutaneous Approach (ICD-10-PCS; 2020-04-13)
PROC: 0U7C7ZZ Dilation of Cervix, Via Natural or Artificial Opening (ICD-10-PCS; 2020-04-13)
PROC: 10E0XZZ Delivery of Products of Conception, External Approach (ICD-10-PCS; principal; 2020-04-14)
PROC: 0KQM0ZZ Repair Perineum Muscle, Open Approach (ICD-10-PCS; 2020-04-14)
PROC: 10907ZC Drainage of Amniotic Fluid, Therapeutic from Products of Conception, Via Natural or Artificial Opening (ICD-10-PCS; 2020-04-14)
DX: O48.0 Post-term pregnancy (principal); Z37.0 Single live birth; O70.1 Second degree perineal laceration during delivery; O43.893 Other placental disorders, third trimester; O75.89 Other specified complications of labor and delivery; Z67.11 Type A blood, Rh negative; Z3A.40 40 weeks gestation of pregnancy; Z20.828 Contact with and (suspected) exposure to other viral communicable diseases
CPT/HCPCS: 36415; 51703; 83033; 85025; 86850; 86900; 86901; 87635; 96374; A9270; G0378; J3490; J7120

== ENCOUNTER 2020-04-29 08:22 | Outpatient (CLI) | payer OTHER | END 2020-04-29 10:00 | disposition home or self-care (01) | LOC: WFO 08:22 → FBP 08:23 → WFO 10:00 | PROVIDERS: ATTEND Obstetrics & Gynecology | DX: P92.5 Neonatal difficulty in feeding at breast (principal); R63.8 Other symptoms and signs concerning food and fluid intake | CPT/HCPCS: 99404 ==

== ENCOUNTER 2020-05-02 14:20 | Outpatient (CLI) | payer OTHER | END 2020-05-02 14:50 | disposition home or self-care (01) | LOC: WFO 14:20 → FBP 14:21 → WFO 14:50 | PROVIDERS: ATTEND Obstetrics & Gynecology | DX: O92.70 Unspecified disorders of lactation (principal) | CPT/HCPCS: 99403 ==

== ENCOUNTER 2020-05-06 10:45 | Outpatient (CLI) | payer OTHER | END 2020-05-06 11:15 | disposition home or self-care (01) | LOC: WFO 10:45 → FBP 10:46 → WFO 11:15 | PROVIDERS: ATTEND Obstetrics & Gynecology | DX: O92.70 Unspecified disorders of lactation (principal) | CPT/HCPCS: 99402 ==